=== PATIENT | male | born 1995 | race Caucasian/White ===

== ENCOUNTER 2017-02-07 22:06 | Emergency (ER) | payer OTHER ==
[~2017-02-07] VITALS: Ht 190.5 cm; Wt 72.7 kg
[2017-02-07 22:20] VITALS: BP 133/60; PULSE 74; TEMP 98.3
== END 2017-02-07 23:48 | disposition home or self-care (01) ==
LOC: COL.ER 22:06
DX: T17.228A Food in pharynx causing other injury, initial encounter (principal); X58.XXXA Exposure to other specified factors, initial encounter